=== PATIENT | male | born 1995 | race Caucasian/White ===

== ENCOUNTER 2016-10-20 21:34 | Emergency (ER) | payer OTHER ==
[~2016-10-20] VITALS: Ht 185.4 cm; Wt 95.5 kg
[2016-10-20 22:43] LABS: APPEARANCE,URINE CLEAR (CLEAR); GLUCOSE, URINE (UA) NEGATIVE (NEGATIVE); KETONES,URINE TRACE mg/dL (NEGATIVE); LEUKOCYTE ESTERASE ,URINE NEGATIVE (NEGATIVE); OCCULT BLOOD,URINE NEGATIVE (NEGATIVE); PROTEIN,URINE NEGATIVE (NEGATIVE)
[2016-10-20 22:43] LABS: BASOPHILS % (AUTO) 0.3 % (0.0-2.0); EOSINOPHILS % (AUTO) 4.3 % (1.0-6.0); HEMATOCRIT 41.5 % (41-53); HEMOGLOBIN 14.3 g/dL (13.5-17.5); LYMPHOCYTES % (AUTO) 42.1 % (22.0-44.0); MEAN CORPUSCULAR HEMOGLOBIN 29.8 pg (26.0-34.0); MEAN CORPUSCULAR HGB CONC 34.5 G/dL (31.0-37.0); MEAN CORPUSCULAR VOLUME 86 fL (80-100); MONOCYTES # (AUTO) 0.5 K/uL (0.1-1.0); MONOCYTES % (AUTO) 5.8 % (2.0-9.0); NEUTROPHILS # (AUTO) 4.5 K/uL (1.8-7.7); NEUTROPHILS % (AUTO) 47.5 % (40.0-70.0); PLATELET COUNT (AUTO) 222 K/uL (150-450); RED CELL DISTRIBUTION WIDTH 13.2 % (11.5-14.5); WHITE BLOOD COUNT (AUTO) 9.5 K/uL (4.5-11.0)
[2016-10-20 22:54] LABS: ADD UA MICROSCOPIC NO
[2016-10-20 23:36] LABS: ANION GAP 4 mmol/L (8-16); CALCIUM, TOTAL 8.6 mg/dL (8.8-10.5); CARBON DIOXIDE 31 mmol/L (22-29); CHLORIDE 102 mmol/L (98-107); GLOMERULAR FILTR. RATE CALC > 60 mL/min (>60); POTASSIUM 4.2 mmol/L (3.5-5.1); SODIUM SERUM 137 mmol/L (136-145); UREA NITROGEN, BLOOD 10 mg/dL (7-18)
[2016-10-20 23:42] LABS: ALANINE AMINOTRANSFERASE 26 U/L (12-78); ALBUMIN 3.8 g/dL (3.4-5.0); ASPARTATE AMINOTRANSFERASE 13 U/L (15-37); BILIRUBIN,TOTAL 0.2 mg/dL (0.1-1.0)
[2016-10-20] MEDS ORDERED: DIAZEPAM 5 MG/ML 2 ML SYRINGE IM ONE (23:45)
[2016-10-20] MEDS ORDERED: KETOROLAC TROMETHAMINE 60 MG/2 ML VIAL IM ONE (23:45)
[2016-10-21 01:15] VITALS: BP 118/67
== END 2016-10-21 01:16 | disposition home or self-care (01) ==
LOC: EMS 21:36
DX: M54.9 Dorsalgia, unspecified (principal); R10.9 Unspecified abdominal pain; M62.830 Muscle spasm of back
CPT/HCPCS: 36415; 71010; 80053; 81003; 83690; 85025; 96372; 99285; J1885 ×2

== ENCOUNTER 2016-12-14 20:43 | Emergency (ER) | payer OTHER ==
[~2016-12-14] VITALS: Ht 182.9 cm; Wt 90.0 kg
[2016-12-14 21:45] LABS: APPEARANCE,URINE CLEAR (CLEAR); GLUCOSE, URINE (UA) NEGATIVE (NEGATIVE); KETONES,URINE NEGATIVE (NEGATIVE); LEUKOCYTE ESTERASE ,URINE NEGATIVE (NEGATIVE); OCCULT BLOOD,URINE NEGATIVE (NEGATIVE); PROTEIN,URINE NEGATIVE (NEGATIVE)
[2016-12-14 21:47] LABS: ADD UA MICROSCOPIC NO
[2016-12-14 23:45] VITALS: BP 128/62
== END 2016-12-15 00:22 | disposition home or self-care (01) ==
LOC: EMS 20:45
DX: N45.1 Epididymitis (principal)
CPT/HCPCS: 76870; 99285